=== PATIENT | male | born 1975 | race Two or more races ===

== ENCOUNTER 2025-01-19 09:40 | Emergency (ER) | payer MEDICAID, SELFPAY ==
[2025-01-19 09:55] VITALS: PULSE 83; RESP 18; O2SAT 96; BMI 33.6
[2025-01-19 10:03] VITALS: BP 122/79; PULSE 73; RESP 20; TEMP 36.8; O2SAT 98
--- NOTE | 2025-01-19 10:07 | XR_ITS ---
Examination: Knee 3 views, left Technique: Knee AP, lateral, oblique 3 views, left Date and time of exam: January 19, 2025, 10:34 AM Indications: Onset right knee pain beginning 2 days ago, no injury Findings: Mild osteopenia. Small knee effusion No fracture Minimal osteoarthritis patellofemoral joint Impression: Minimal osteoarthritis patellofemoral joint
--- NOTE | 2025-01-19 10:07 | XR_ITS ---
Examination: Duplex scan of the lower extremity, unilateral right Date and time of exam: January 19, 2025, 1019 hrs. Indications: Right knee pain unable to bend the knee beginning 2 days ago Technique: Duplex scan of the extremity veins using B-mode/grayscale imaging and Doppler spectral analysis and color flow Attention is directed to internal echogenicity, compression and augmentation involving these veins, color flow assessment, spectral analysis Findings: Major deep venous structures in the extremity demonstrate normal course and caliber. There is no evidence of deep vein thrombosis. Normal color flow and spectral analysis Impression: Negative for DVT..
[2025-01-19] MEDS: HYDROcodone/APAP 10/325 TAB PO (10:13)
[2025-01-19] MEDS: KETOROLAC INJ 30 MG/ML VIAL IM (10:14)
--- NOTE | 2025-01-19 12:27 | PD.EDPED ---
ED General RME/HPI General Stated complaint: RIGHT LEG PAIN Time Seen by Provider: 01/19/25 10:08 Arrival date/time: 01/19/25 09:40 50-year-old male with no significant medical problems presents to the emergency department via EMS complaints of right knee pain patient reports pain worse with movement no definite injury Limitations: no limitations Related Data Previous Rx's ?Medication ?Instructions ?Recorded hydrocodone 5 mg-acetaminophen 325 1 tab PO BID PRN pain #10 tabs 01/19/25 mg tablet indomethacin 50 mg capsule 50 mg PO TID 5 days #15 caps 01/19/25 prednisone 10 mg tablet 30 mg (3 x 10 mg) PO BID 3 days 01/19/25 #18 tabs Allergies Allergy/AdvReac Type Severity Reaction Status Date / Time No Known Allergies Allergy Verified 03/12/24 14:44 Pediatric Review of Systems Systems Reviewed Systems Reviewed: All systems reviewed, normal except as documented Review of Systems Constitutional: Reports as per HPI; Denies fever Eyes: Reports as per HPI ENT: Reports as per HPI Cardiovascular: Reports as per HPI Respiratory: Reports as per HPI Gastrointestinal: Reports as per HPI; Denies abdominal pain Musculoskeletal: Reports as per HPI, joint swelling, joint pain and gait changes Past Medical History Past Medical History CARDIAC: Negative Congestive Heart Failure RESPIRATORY: Negative Chronic Obstructive Pulmonary Disease (COPD) GENITOURINARY: Negative Renal Disease ENDOCRINE: Negative Diabetes Mellitus Type 1 or Diabetes Mellitus Type 2 Social History SMOKING STATUS: Current some day smoker Ped Exam General Limitations: no limitations General appearance: well-appearing, well-hydrated and well-nourished Head Head exam: normocephalic, atruamatic and normal inspection Eye Eye exam: Present normal appearance, PERRL and EOMI ENT ENT exam: normal exam, normal oropharynx and mucous membranes moist Neck Neck exam: Present normal inspection, full ROM and trachea midline Chest Chest inspection: Present normal inspection and symmetric chest wall rise Respiratory Respiratory exam: Present normal lung sounds bilaterally Cardiovascular Cardiovascular exam: Present regular rate, normal rhythm and normal heart sounds Abdominal Exam Abdominal exam: Present soft and normal bowel sounds Extremities Exam Extremities exam: Present full ROM, tenderness, normal capillary refill and joint swelling; Absent pedal edema or calf tenderness Back Exam Back exam: Present normal inspection and full ROM Neurological Exam Neurological exam: Present alert, oriented X3 and CN II-XII intact Skin Skin exam: Present warm, dry, intact and normal color Course Quality Measures none Orders Category Date Time Status US venous doppler LE RT Stat Exams 01/19/25 10:07 Completed XR knee RT 3V Stat Exams 01/19/25 10:07 Completed HYDROcodone/APAP 10/325 [[place] 10/325] Med 01/19/25 10:07 Discontinued 1 tab PO X1 ONE Ketorolac Inj [Toradol Inj] Med 01/19/25 10:07 Discontinued 30 mg IM X1 ONE Vital Signs Vital signs: Vital Signs Temperature 98.3 F 01/19/25 10:03 Pulse Rate 73 01/19/25 10:03 Respiratory Rate 20 01/19/25 10:03 Blood Pressure 122/79 01/19/25 10:03 Pulse Oximetry (%) 98 01/19/25 10:03 Oxygen Delivery Method Room Air 01/19/25 10:03 O2 saturation 98% room air within normal limits Medical Decision Making MDM Narrative MDM Narrative: 50-year-old male with no significant medical problems presents to the emergency department via EMS complaints of right knee pain patient reports pain worse with movement no definite injury X-ray as well as ultrasound obtained no acute emergent findings noted Patient given pain medication which improved her symptoms Patient given crutches and an Hayden wrap Patient instructed to follow-up with PCP and request MRI as needed Differential Diagnosis Differential Diagnosis: Knee sprain, knee fracture, ligamentous tear, gout Medical Records Medical records reviewed: Yes I reviewed the patient's medical records. Radiology Data Radiology results reviewed: Yes I reviewed the patient's radiology results. MDM (ped) Patient data External records reviewed:: [facility] previous records Clinical information provided by:: patient Social determinants that could affect healthcare access:: none Patient has the following chronic illnesses:: None How is presenting disease/condition affected by chronic disease/condition?: no chronic disease Evaluation data The following diagnostics were reviewed and interpreted by me:: radiology exam(s) Lab and/or radiology exams considered but not ordered:: Radiology obtained Interpretation Summary: Reviewed by me Medications Medications considered but not ordered:: Given Medication administrations:: Medication Administration History Discontinued Medications Hydrocodone Bitart/Acetaminophen (Hydrocodone/Apap 10/325 Tab) 1 tab PO X1 ONE Stop: 01/19/25 10:08 Last Admin: 01/19/25 10:13 Dose: 1 tab Documented By: SM Ketorolac Tromethamine (Ketorolac Inj 30 Mg/Ml Vial) 30 mg IM X1 ONE Stop: 01/19/25 10:08 Last Admin: 01/19/25 10:14 Dose: 30 mg Documented By: SM Given Consultations Consultation(s) initiated? (list below): No Diagnosis Most likely diagnosis given after review of the tests above:: Knee sprain Admission Indicated Admission indicated?: not indicated Explain why admission is indicated or not indicated:: Now criteria Admission Request Was there a request for admission?: No Disposition Plan Disposition Plan: Discharge Discharge Attestation Discharge Attestation: The patient and all family members were given an opportunity to ask questions and understood the discharge instructions. Discharge instructions specifically effects, indications for sooner follow up or return to the emergency department, and the expected course of current diagnosis. Patient condition: Stable Discharge Plan Plan Patient Disposition: HOME (Self Care) Disposition Comment: Stable Prescriptions/Referrals Prescriptions/Med Rec: New prednisone 10 mg tablet 30 mg PO BID 3 Days Qty: 18 0RF hydrocodone-acetaminophen 5-325 mg tablet 1 tab PO BID MDD 10 PRN (Reason: pain) Qty: 10 0RF indomethacin 50 mg capsule 50 mg PO TID 5 Days Qty: 15 0RF Rx Instructions: administer with food or milk Referrals: Thomas Kim MD [Primary Care Provider] - In 1 week Problem List Clinical Impression: Knee pain, right Patient/Caregiver Discharge Instructions Education Materials: ED Arthralgia Additional Instructions: Please follow up with your primary care doctor in the next 24-48hrs for any worsening symptoms return here immediately If pain persists or worsens please request MRI by PCP Print Language: [place] Stand Alone Forms: Leia Award Info., Patient Portal Info Letter PA/ASHUTOSH Supervising Physician CLIFFORD/ASHUTOSH Supervising Physician: Dr Mccracken
[2025-01-19 12:37] VITALS: BP 156/70; PULSE 61; RESP 18; TEMP 37.1; O2SAT 97
== END 2025-01-19 12:37 | disposition home or self-care (01) ==
PROVIDERS: Emergency Provider Family Medicine; PCP Family Medicine
DX: M25.561 Pain in right knee (principal)
CPT/HCPCS: 73562; 93971; 96372; 99284; J1885; A9270

== ENCOUNTER → 2025-07-11 | Outpatient (CLI) | payer MEDICAID, SELFPAY ==
--- NOTE | 2025-07-11 14:00 | XR_ITS ---
Exam: MRI knee without contrast, right Date and time of exam: July 11, 2025, 1434 hours INDICATIONS: Onset medial knee pain joint clicking and stiffness 6 months Technique: Multiple axial, coronal, and sagittal sections on the knee have been obtained. T2-Weighted sagittal, fat-suppressed images, TR 3,500, TE 62, T2 weighted coronal fat-saturated images, TR 3,500, TE 62 Proton density sagittal sections, TR 1800, TE 31. T-1 weighted coronal images, TR 524, TE 13.0 Findings: Medial meniscus anterior horn intact. Medial meniscus, body large vertical tear with meniscocapsular separation. Posterior horn medial meniscus large horizontal linear tear communicating inferior articular surface. Lateral meniscus anterior horn is intact Lateral meniscus, body is intact Posterior horn lateral meniscus is intact Anterior cruciate ligament absent. Posterior cruciate ligament appears intact. Knee effusion is small. Quadriceps and patellar tendons appear intact. There is no evidence of tendinosis. Inflammatory change or fracture of Hoffa's fat pad is not seen. Medial patellar facet demonstrates mild thinning. Lateral patellar facet cartilage demonstrates mild thinning. Trochlear cartilage demonstrates mild thinning. Marrow signal adequate. Medial collateral ligament appears intact. Illiotibial band and fibular collateral ligament are intact. Biceps femoris tendons appear intact. Medial femoral condylar articular cartilage demonstrates moderate thinning. Lateral femoral condylar articular cartilage demonstrates moderate thinning. Tibial plateau cartilage demonstrates moderate thinning. Impression: Meniscocapsular separation body of the medial meniscus with large vertical tear Large horizontal tear posterior horn medial meniscus Absent anterior cruciate ligament
== END | disposition home or self-care (01) ==
LOC: SMRI 13:42
DX: S83.194A Other dislocation of right knee, initial encounter (principal); S83.241A Other tear of medial meniscus, current injury, right knee, initial encounter; X58.XXXA Exposure to other specified factors, initial encounter; M23.8X1 Other internal derangements of right knee
CPT/HCPCS: 73721

== ENCOUNTER 2025-09-16 13:59 | Outpatient (AMB) | payer MEDICAID, SELFPAY ==
--- NOTE | 2025-09-16 14:21 | ORTHONT_ITS ---
Vital signs 09/16/25 14:33 Height 1.78 m Height Method Stated Weight 97.607 kg Weight Measurement Method Standing Scale BMI 30.9 BP 143/87 H Blood Pressure Source Automatic Cuff Blood Pressure Location Left Upper Arm Position Sitting Respiration 19 Pulse 70 Pulse Source Monitor Temp 96.9 F Temp Source Temporal Artery Scan Pulse Oximetry (%) 98 Oxygen Delivery Method Room Air Med/Allergies Allergies & Medications Allergies No Known Allergies Allergy (Verified 09/16/25 14:34) Medication Reconciliation hydrocodone 5 mg-acetaminophen 325 mg tablet 1 tab PO BID PRN pain #10 tabs 01/19/25 [Rx Confirmed 09/16/25] meloxicam 7.5 mg tablet 7.5 mg PO QDAY #45 tabs 09/16/25 [Rx] Exam Exam Breathing is nonlabored. Patient has a normal mood and affect. Bilateral extremities were evaluated and demonstrates sensation intact to light touch. Palpable pedal pulses are present. No significant edema is present. Bilateral hips were examined. The patient has no pain with log roll of the hips. Internal rotation to 30 degrees and external rotation to 30 degrees is painless. Negative FADIR. Left knee was examined today. The left knee is in reasonable alignment. Range of motion from 0-120 degrees. Knee is stable to varus and valgus as well as AP translation with <5mm. Patient has a negative McMurrays. There is no pain with patellofemoral compression and no crepitus noted. The knee is nontender to palpation. The right knee was also examined. The right knee is in varus alignment. Range of motion from 0-115 degrees. Knee is stable to varus and valgus as well as AP translation with <5mm. Patient has a negative McMurrays. There is no pain with patellofemoral compression and no crepitus noted. The knee is tender to palpation medially. MRI demonstrates a meniscal tear of the right knee. Xrays are nonweightbearing Assessment and Plan Problem List (1) Arthritis of knee, right: Status: Acute (2) Right knee meniscal tear: Status: Acute Plan: Patient is a pleasant 50-year-old male with a right knee meniscal tear and right knee arthritis. I would like to get weightbearing x-rays. We discussed nonoperative and operative options. I would for start with anti-inflammatories and injection. I sent him for a prescription for meloxicam. Recommend knee cortisone injection as patient would like to proceed with conservative treatment at this time. The risks and benefits of the procedure were reviewed with the patient and patient gave verbal consent to continue with the procedure. Procedure: performed by Dr. Davis Using sterile technique the Right knee was thoroughly prepped with alcohol, and approximately 1 cc of Depo-Medrol 80mg/mL and 4 cc of 0.2% ropivacaine was injected without resistance into the medial tibial femoral joint space. The patient tolerated the procedure. Office Procedures GNS Level of Care Nursing/Assessment Patient Status: Initial/New Patient Nursing Assessment/Reassesment: Medication Reconciliation, Update PMH in EMR and Vital Signs Coordination of Care: Complex Care and Chronic Disease 1-5, Education Complex Pt/Fam, Consent,records obtained, informed consent, 1 Ins Authorization, Lab and Imaging orders, Results/Orders obtained and Staff clarify orders New Patient Charge New Patient Point Assignment: 1124 New Patient Point Charge: [employer] Level 4 ([id number]) Surgical Proc/IM SQ injection Minor Surgical Procedure: Yes (KNEE INJECTION) Medication Given Medication Given Medication Given: Yes Documented Dose Given: 1 Route: Infiitration Medication Given Medication Given Medication Given: Yes Documented Dose Given: 4 Route: Infiitration Office Meds methylprednisolone acetate 80 mg/mL suspension for injection Performing Provider: Florencio Davis MD Performing Location: [facility] Administered by: Florencio Davis MD on 09/16/25 15:30 Dose Route Admin Location Dispensed Lot Number Expiration Date Pack age [facility] [employer] 80 mg intra-articular 1 mL [id number] 05/31/27 [address]-0 [id number] [employer] ropivacaine (PF) 2 mg/mL (0.2 %) injection solution Performing Provider: Florencio Davis MD Performing Location: [facility] Administered by: Florencio Davis MD on 09/16/25 15:30 Dose Route Admin Location Dispensed Lot Number Expiration Date Pack age [facility] [employer] 20 mL Infiltration 20 mL [id number] 02/28/27 2305-6921-70 [id number] CHEYANNE NGUYEN MA Intake Visit Data Collection New Patient or Established: New Patient (never been to [facility]) Reason for Visit:: RIGHT MENISCUS PAIN Seen by Clinical Staff ONLY (RN/MA): No PCP or OBGYN visit in last 3 months: Yes Hx Now: No Do You Feel Safe at Home: Yes Authorities Contacted: N/A Questionairres Past Medical History Past Medical History Have you ever been diagnosed with any of the following: Cardiology Problems Congestive Heart Failure: No Respiratory Problems Chronic Obstructive Pulmonary Disease (COPD): No Smoking: Yes Smoking Cessation Counseling: No Smoking Exposure: Yes Genital/Urinary Problems Renal Disease: No Endocrine Problems Diabetes Mellitus Type 1: No Diabetes Mellitus Type 2: No Subjective Visit Visit for: new patient and knee (RIGHT) Immunization / Flu Flu Vaccine in the Last 12 Months: No Flu Vaccine Exclusion Criteria: Refused by Patient History of Present Illness Chief complaint: RIGHT MENISCUS Date of injury / onset of symptoms: 12/2024 HISTORY OF PRESENT ILLNESS I, Florencio Davis, have obtained verbal consent from the patient, to be recorded during this encounter which may include, but not limited to, medical history, examination, treatment plans, and relevant health information.? Patient was informed that recording will be read and reviewed by myself before inclusion in the medical chart. The patient is a 50-year-old male who presents today with right knee pain that he has had since December 2024. He reports experiencing pain in his right knee, which intensifies during prolonged periods of standing or walking. He does not experience any instances of his knee locking, clicking, or becoming stuck. 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 He has undergone x-rays at [facility], had one physical therapy session that did not help, and has been taking naproxen, which currently helps. An MRI was performed. Personal History Occupation: STORE Red flag PMH: smoker (OCCASIONAL) Pain Pain level (0-10): 6 Pain duration: COMES AND GOES Pain location: inside (medial) Pain quality: sharp Pain timing: increases with activity and stairs Associated signs & symptoms: none Ambulatory data Ambulatory device: none Treatments Improvement with previous injections: No Number of Physical Therapy sessions: 1 Improvement with PT: No Improvement with NSAIDS: yes (NAPROXEN) Review of Systems Review of Systems: All systems negative unless otherwise noted in HPI.
[2025-09-16 14:33] VITALS: BP 143/87; PULSE 70; RESP 19; TEMP 36.1; O2SAT 98; BMI 30.9
--- NOTE | 2025-09-16 15:18 | XR_ITS ---
EXAMINATION: Bilateral AP knee single view Right knee PA lateral axial 3 views TECHNIQUE: Bilateral AP knees standing single view Right knee PA standing flexion, standing lateral, axial right knee 3 views total 4 views Date and time: September 16, 2025, 1527 hours, comparison January 19, 2025 INDICATIONS: Right knee pain 8 months. FINDINGS: Moderate osteopenia Moderate narrowing medial joint space right knee No fracture or patellar dislocation IMPRESSION: Moderate narrowing medial joint space right knee
== END 2025-09-16 15:18 | disposition home or self-care (01) ==
LOC: HODSRG 13:59
PROVIDERS: Supervising Provider Orthopaedic Surgery Adult Reconstructive Orthopaedic Surgery; Visit Provider Orthopaedic Surgery Adult Reconstructive Orthopaedic Surgery
DX: M17.11 Unilateral primary osteoarthritis, right knee (principal); S83.206A Unspecified tear of unspecified meniscus, current injury, right knee, initial encounter; X58.XXXA Exposure to other specified factors, initial encounter; M25.561 Pain in right knee
CPT/HCPCS: 20610; 73564; 99204; J1010; J2795; G0463